=== PATIENT | female | born 1990 | race Hispanic/Latino ===

== ENCOUNTER 2017-12-20 12:01 | Emergency (ER) | payer OTHER ==
[2017-12-20 13:14] LABS: Absolute Lymphocytes (CBC) 1.8 K/uL (0.7-4.9); Absolute Monocytes 0.5 K/uL (0.1-1.3); Absolute Neutrophil 6.2 K/uL (1.8-8.0); Basophils % 0.1 % (0-1.3); Eosinophils % 2.9 % (0-4.4); Hematocrit 33.7 % (36.0-45.0); Lymphocytes % 20.8 % (15.3-44.8); MCH 30.5 pg (27.0-35.0); MCV 84.8 fL (80-100); MPV 8.7 fL (7.6-11.3); Monocytes % 5.3 % (3.3-12.3); RBC Red Blood Cell Count 3.97 M/uL (3.86-4.86)
--- NOTE | 2017-12-20 13:21 | RAD REPORT ---
EXAM DESCRIPTION: US - Transvaginal OB - 12/20/2017 1:12 pm CLINICAL HISTORY: Back pain, abdominal pain, COMPARISON: None. FINDINGS: An intrauterine gestation is identified. [place] lump measurement corresponds to a 9 week 2 day age. However, prolonged sonographic evaluation failed to identify any cardiac activity. No gross deformity of the pole seen. No hematoma or mass of the gestational sac. Yolk sac is seen. Ovaries and adnexa show no suspicious findings. A 2 centimeter left ovarian cyst is present. No abnor mal free fluid or blood collection. Uterus and ovaries are normal size. There is no myometrial mass. IMPRESSION: Intrauterine demise. [place]-rump length measurement is 9 weeks 2 days ; however, pr olonged sonographic assessment failed to identify any cardiac activity.
[2017-12-20 13:33] LABS: BUN Blood Urea Nitrogen 8 mg/dL (7-18); Bicarbonate 29 mmol/L (21-32); Glucose Level 105 mg/dL (74-106); HCG, Quantitative 124694 mIU/mL (1-3); Potassium 3.8 mmol/L (3.5-5.1); Sodium Level 139 mmol/L (136-145)
--- NOTE | 2017-12-20 15:10 | EDPHYS ---
Physician Documentation [facility] Name: Janet Holm Age: 27 yrs Sex: Female : 1990 Arrival Date: 12/20/2017 Time: 12:06 Bed 18 Private MD: None, None ED Physician Shaheen Ruiz HPI: 12/20 13:00 This 27 yrs old Female presents to ER via Ambulatory with complaints of 9 wks pm1 , Back Pain. 13:00 The patient presents with pain that is acute. The symptoms are located in the sacrum pm1 and left low back. The pain does not radiate. The problem was sustained when lifting special needs child with leg casts. Onset: The symptoms/episode began/occurred 3 day(s) ago. Modifying factors: The patient symptoms are alleviated by nothing, the patient symptoms are aggravated by bending, movement. Associated signs and symptoms: Pertinent negatives: abdominal pain, chest pain, constipation, dysuria, fever, headache, nausea, numbness, tingling, vomiting, weakness. Severity of symptoms: in the emergency department the symptoms are unchanged. The patient has not experienced similar symptoms in the past. The patient has not recently seen a physician, and does not have an established primary care provider, does not have a raftsman . Patient without any vaginal bleeding, discharge, urinary symptoms, or pelvic pain. 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 - Social history:: Smoking status: Patient/guardian denies using tobacco. - Ebola Screening: : Patient negative for fever greater than or equal to 101.5 degrees Fahrenheit, and additional compatible Ebola Virus Disease symptoms Patient denies exposure to infectious person Patient denies travel to an Ebola-affected area in the 21 days before illness onset No symptoms or risks identified at this time. ROS: 13:00 Constitutional: Negative for fever, chills, and weight loss, Eyes: Negative for injury, pm1 pain, redness, and discharge, ENT: Negative for injury, pain, and discharge, Neck: Negative for injury, pain, and swelling, Cardiovascular: Negative for chest pain, palpitations, and edema, Respiratory: Negative for shortness of breath, cough, wheezing, and pleuritic chest pain, Abdomen/GI: Negative for abdominal pain, nausea, vomiting, diarrhea, and constipation. 13:00 : Negative for injury, bleeding, discharge, and swelling, MS/Extremity: Negative for injury and deformity, Skin: Negative for injury, rash, and discoloration, Neuro: Negative for headache, weakness, numbness, tingling, and seizure. 13:00 Back: Positive for of the sacrum and left low back, pain. Exam: 13:00 Constitutional: This is a well developed, well nourished patient who is awake, alert, pm1 and in no acute distress. Head/Face: Normocephalic, atraumatic. Eyes: Pupils equal round and reactive to light, extra-ocular motions intact. Lids and lashes normal. Conjunctiva and sclera are non-icteric and not injected. Cornea within normal limits. Periorbital areas with no swelling, redness, or edema. ENT: Nares patent. No nasal discharge, no septal abnormalities noted. Tympanic membranes are normal and external auditory canals are clear. Oropharynx with no redness, swelling, or masses, exudates, or evidence of obstruction, uvula midline. Mucous membranes moist. Neck: Trachea midline, no thyromegaly or masses palpated, and no cervical lymphadenopathy. Supple, full range of motion without nuchal rigidity, or vertebral point tenderness. No Meningismus. Chest/axilla: Normal chest wall appearance and motion. Nontender with no deformity. No lesions are appreciated. Cardiovascular: Regular rate and rhythm with a normal S1 and S2. No gallops, murmurs, or rubs. Normal PMI, no JVD. No pulse deficits. Respiratory: Lungs have equal breath sounds bilaterally, clear to auscultation and percussion. No rales, rhonchi or wheezes noted. No increased work of breathing, no retractions or nasal flaring. 13:00 Skin: Warm, dry with normal turgor. Normal color with no rashes, no lesions, and no evidence of cellulitis. MS/ Extremity: Pulses equal, no cyanosis. Neurovascular intact. Full, normal range of motion. 13:00 Abdomen/GI: Inspection: abdomen appears normal, Bowel sounds: normal, Palpation: soft, mild abdominal tenderness, in the left lower quadrant, mass, is not appreciated, rebound tenderness, is not appreciated. 13:00 Back: pain, that is mild, of the sacrum and left low back, normal spinal alignment noted. 13:00 Neuro: Orientation: is normal, Motor: moves all fours, Gait: is steady, at a normal pace, without difficulty. 14:20 : Pelvic Exam: External exam: is normal, Speculum exam: normal findings, no bleeding pm1 is noted, os that is closed, bimanual exam reveals no cervical motion tenderness, os that is closed, discharge, is not appreciated, Miriam HUTCHINSON present. Vital Signs: 12:15 BP 122 / 78; Pulse 96; Resp 18; Temp 98.3; Pulse Ox 100% on R/A; Weight 72.57 kg; aj Height 5 ft. 1 in. (154.94 cm); 15:25 BP 118 / 77; Pulse 92; Resp 18; Pulse Ox 100% on R/A; hj 12:15 Body Mass Index 30.23 (72.57 kg, 154.94 cm) aj MDM: 12:17 Patient medically screened. pm1 14:30 Physician consultation: Tracey Pitt MD was contacted at 14:30, regarding patient's pm1 condition, outpatient follow-up, and will see patient next week, Will see patient next week. Patient needs to call the office for an appointment next week. She recommends cytotec [id number] vaginal if patient wants to take it. 14:35 ED course: Discussed treatment options with patient as discussed with Dr. Pitt. Patient pm1 wants to discuss with her family. 15:00 ED course: Patient does not want to take Cytotec. She would like to observe because she pm1 "feels the baby moving" and will follow up with Dr. Pitt next week. 15:02 Data reviewed: vital signs. Data interpreted: Pulse oximetry: on room air is 100 %. pm1 Interpretation: normal. Counseling: I had a detailed discussion with the patient and/or guardian regarding: the historical points, exam findings, and any diagnostic results supporting the discharge/admit diagnosis, lab results, radiology results, the need for outpatient follow up, for definitive care, an OB/Gyne specialist, to return to the emergency department if symptoms worsen or persist or if there are any questions or concerns that arise at home. 12/20 12:31 Order name: Quantitative Hcg; Complete Time: 13:52 pm1 12/20 12:31 Order name: Abo/rh Typing; Complete Time: 13:52 pm1 12/20 12:31 Order name: US Transvaginal Ob; Complete Time: 13:26 pm1 12/20 12:31 Order name: Basic Metabolic Panel; Complete Time: 13:52 pm1 12/20 12:31 Order name: CBC with Diff; Complete Time: 13:26 pm1 12/20 12:31 Order name: IV Saline Lock; Complete Time: 12:59 pm1 12/20 12:31 Order name: Labs collected and sent; Complete Time: 12:59 pm1 12/20 12:31 Order name: NPO; Complete Time: 12:32 pm1 Administered Medications: No medications were administered Disposition: 16:17 Co-signature as Attending Physician, Shaheen Ruiz MD. rn Disposition: 12/20/17 15:09 Discharged to Home. Impression: demise . - Condition is Stable. - Medication Reconciliation Form, Thank You Letter form. - Follow up: Emergency Department; When: As needed; Reason: Worsening of condition. Follow up: Tracey Pitt MD; When: 4 - 5 days; Reason: Recheck today's complaints, Continuance of care, Re-evaluation by your physician. - Problem is new. - Symptoms have improved. Signatures: Dispatcher [employer] EDMS Claudia Bello RN RN aj Nieto, Roman, MD MD rn Joaquin, Henry, RN RN hj Marinas, Patrick, BEATRICE GILL TENDER pm1 Corrections: (The following items were deleted from the chart) 15:25 15:09 12/20/2017 15:09 Discharged to Home. Impression: demise . Condition is hj Stable. Forms are Medication Reconciliation Form, Thank You Letter, Antibiotic Education, Prescription Opioid Use. Follow up: Emergency Department; When: As needed; Reason: Worsening of condition. Follow up: Tracey Pitt; When: 4 - 5 days; Reason: Recheck today's complaints, Continuance of care, Re-evaluation by your physician. Problem is new. Symptoms have improved. pm1
--- NOTE | 2017-12-20 15:10 | ER ---
Nurse's Notes [facility] Name: Janet Holm Age: 27 yrs Sex: Female : 1990 Arrival Date: 12/20/2017 Time: 12:06 Bed 18 Private MD: None, None Diagnosis: demise Presentation: 12/20 12:13 Presenting complaint: Patient states: Reports low back pain for 3 days that has aj increased after having to lift her special needs child. Transition of care: patient was not received from another setting of care. Onset of symptoms was December 16, 2017. Risk Assessment: Do you want to hurt yourself or someone else? Patient reports no desire to harm self or others. Initial Sepsis Screen: Does the patient meet any 2 criteria? No. Patient's initial sepsis screen is negative. Does the patient have a suspected source of infection? No. Patient's initial sepsis screen is negative. Care prior to arrival: None. 12:13 Method Of Arrival: Ambulatory aj 12:13 Acuity: OBINNA 4 aj Triage Assessment: 12:15 General: Appears in no apparent distress. comfortable, Behavior is calm, cooperative, aj appropriate for age. Pain: Complains of pain in coccyx, left lower back and right lower back. Neuro: Level of Consciousness is awake, alert, obeys commands, Oriented to person, place, time, situation, Appropriate for age. Respiratory: Airway is patent Respiratory effort is even, unlabored, Respiratory pattern is regular, symmetrical. Derm: Skin is intact, is healthy with good turgor, Skin is pink, warm \T\ dry. normal. Musculoskeletal: Range of motion: intact in all extremities. 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 - Social history:: Smoking status: Patient/guardian denies using tobacco. - Ebola Screening: : Patient negative for fever greater than or equal to 101.5 degrees Fahrenheit, and additional compatible Ebola Virus Disease symptoms Patient denies exposure to infectious person Patient denies travel to an Ebola-affected area in the 21 days before illness onset No symptoms or risks identified at this time. Screenin:45 Abuse screen: Denies threats or abuse. Denies injuries from another. Nutritional cc3 screening: No deficits noted. Tuberculosis screening: No symptoms or risk factors identified. Fall Risk None identified. Assessment: 13:02 General: Appears in no apparent distress. comfortable, well groomed, Behavior is calm, cc3 cooperative, appropriate for age. Pain: Complains of pain in sacrum, left low back and right low back. Neuro: Level of Consciousness is awake, alert, obeys commands, Oriented to person, place, time, situation, Appropriate for age. Cardiovascular:. Respiratory: Airway is patent Respiratory effort is even, unlabored, Respiratory pattern is regular, symmetrical. GI: No signs and/or symptoms were reported involving the gastrointestinal system. EENT: No signs and/or symptoms were reported regarding the EENT system. Derm: No signs and/or symptoms reported regarding the dermatologic system. Musculoskeletal: Reports pain in right lower back and left lower back. 13:02 Cardiovascular: Capillary refill < 3 seconds Patient's skin is warm and dry. cc3 Vital Signs: 12:15 BP 122 / 78; Pulse 96; Resp 18; Temp 98.3; Pulse Ox 100% on R/A; Weight 72.57 kg; aj Height 5 ft. 1 in. (154.94 cm); 15:25 BP 118 / 77; Pulse 92; Resp 18; Pulse Ox 100% on R/A; hj 12:15 Body Mass Index 30.23 (72.57 kg, 154.94 cm) aj ED Course: 12:06 Patient arrived in ED. mr 12:06 None, None is Private Physician. mr 12:14 Triage completed. aj 12:15 Arm band placed on left wrist. Patient placed in an exam room. aj 12:17 Nasim Wilcox NP is PHCP. pm1 12:17 Shaheen Ruiz MD is Attending Physician. pm1 12:45 Patient has correct armband on for positive identification. Placed in gown. Bed in low cc3 position. Call light in reach. Side rails up X 1. Adult w/ patient. 12:45 Initial lab(s) drawn, by me, sent to lab. T\T\S collected, blood band applied to patient. cc3 Inserted saline lock: 20 gauge in right antecubital area, using aseptic technique. Blood collected. 13:12 US Transvaginal Ob In Process Unspecified. EDMS 13:55 Daron Adnrea, JASPER is Primary Nurse. 15:03 Tracey Pitt MD is Referral Physician. pm1 15:23 No provider procedures requiring assistance completed. IV discontinued, intact, hj bleeding controlled, No redness/swelling at site. Pressure dressing applied. Administered Medications: No medications were administered Outcome: 15:09 Discharge ordered by MD. pm1 15:24 Discharged to home ambulatory, with family. hj 15:24 Condition: stable 15:24 Discharge instructions given to patient, family, Instructed on discharge instructions, follow up and referral plans. Demonstrated understanding of instructions, follow-up care. 15:25 Patient left the ED. Signatures: Dispatcher [employer] EDOH Claudia Bello RN RN aj Rivera, Maria mr Daron Andrea RN RN Nasim Wilcox, BEATRICE RECONCILIATION COORDINATOR pm1 Miriam Hartmann cc3 Corrections: (The following items were deleted from the chart) 12:16 12:15 LMP 10/12/2017 kailee dugan 13:00 12:59 Inserted saline lock: 20 gauge in right antecubital area, using aseptic cc3 technique. cc3 13:01 12:59 Inserted saline lock: 20 gauge in right antecubital area, using aseptic cc3 technique. Blood collected. cc3 13: 13:00 Initial lab(s) drawn, by pr, sent to lab. T\T\S collected, blood band applied to cc3 patient. cc3 13:15 13:02 Cardiovascular: No deficits noted. cc3 cc3 13:15 13:02 Respiratory: No deficits noted. cc3 cc3
== END 2017-12-20 15:25 | disposition home or self-care (01) ==
LOC: ER 12:01
DX: O36.4XX0 Maternal care for intrauterine death, not applicable or unspecified (principal); Z3A.09 9 weeks gestation of pregnancy; M54.5 Low back pain
CPT/HCPCS: 36415; 76817; 80048; 84702; 85025; 86900; 86901; 99283